=== PATIENT | male | born 1970 ===

== ENCOUNTER 2024-05-09 06:27 | Day surgery (SDC) | payer BC, OTHER, SELFPAY | END 2024-05-09 12:49 | disposition home or self-care (01) | LOC: GI 06:27 | PROVIDERS: ATTENDING PHYSICIAN Internal Medicine Gastroenterology | DX: Z12.11 Encounter for screening for malignant neoplasm of colon (principal); K57.30 Diverticulosis of large intestine without perforation or abscess without bleeding; K64.8 Other hemorrhoids; R12 Heartburn; K44.9 Diaphragmatic hernia without obstruction or gangrene; K22.70 Barrett's esophagus without dysplasia; Z80.0 Family history of malignant neoplasm of digestive organs; D12.2 Benign neoplasm of ascending colon; D12.0 Benign neoplasm of cecum; Z86.0101 Personal history of adenomatous and serrated colon polyps | CPT/HCPCS: 45385; 43239; 88305 ==

== ENCOUNTER 2024-07-31 06:10 | Day surgery (SDC) | payer BC, OTHER, SELFPAY ==
[2024-07-31 08:47] VITALS: BMI 22.5
[2024-07-31 10:54] VITALS: BP 113/65
[2024-07-31 11:00] VITALS: BP 118/68
[2024-07-31 11:15] VITALS: BP 114/72
== END 2024-07-31 11:30 | disposition home or self-care (01) ==
LOC: GI 06:10
PROVIDERS: ATTENDING PHYSICIAN Internal Medicine Gastroenterology
DX: D12.0 Benign neoplasm of cecum (principal); K63.5 Polyp of colon; K63.89 Other specified diseases of intestine; K57.30 Diverticulosis of large intestine without perforation or abscess without bleeding; K64.0 First degree hemorrhoids
CPT/HCPCS: 45390; 45380; 88305

== ENCOUNTER → 2024-08-03 13:59 | Day surgery (SDC) | payer BC, OTHER, SELFPAY ==
[2024-08-03] VITALS (9 sets, daily range): BP systolic 102–117; BP diastolic 62–91; BMI 23.4
--- NOTE | 2024-08-03 10:35 | ED.GENMED ---
History of Present Illness
General
Chief Complaint: Swallowing Problem
Source: patient
Exam Limitations: none
Time Seen by Provider: 08/03/24 10:27
History of Present Illness
History of Present Illness:
See MDM
Past History
Past History
ED Past Medical History: GERD
ED Past Surgical History: None
Social History
Tobacco: Non-smoker
Alcohol: None
Phy Exam
Physical Exam
Physical Exam:
See MDM
Course
Orders/Labs/Results
Orders:
Orders
08/03/24 10:31
0.9% Sodium Chloride 1000 ml [Nss] 1,000 ml IV BOLUS
Glucagon [GlucaGen] 1 mg IV NOW STA
08/03/24 10:54
Lorazepam [Ativan] 0.5 mg IV NOW STA
08/03/24 11:27
Consult Gastroenterology [GASTROINTESTINAL CONSULT] Urgent
Consulting Provider: Amy Rodriguez
Was physician already notified: Yes
Glucagon [GlucaGen] 1 mg IV NOW STA
Vital Signs
Initial and Last Documented VS:
Initial Vital Signs
Temp Pulse Resp BP Pulse Ox
98.2 F 61 16 104/67 99
08/03/24 09:49 08/03/24 09:49 08/03/24 09:49 08/03/24 09:49 08/03/24 09:49
Last Documented Vital Signs
Temp Pulse Resp BP Pulse Ox
97.6 F 64 18 108/63 99
08/03/24 14:36 08/03/24 15:30 08/03/24 15:30 08/03/24 15:30 08/03/24 15:30
MDM/Problems Addressed
Differential Diagnosis Includes:
HPI and MDM Narrative:
53-year-old male presenting for evaluation of esophageal food impaction. Patient was eating dinner last night and a piece of chicken got caught in his throat. He has been unable to swallow water or completely swallow his secretions since then. On
exam, he is somewhat uncomfortable. Will give dose of glucagon and provide IV fluids and discussed case with GI
Physical exam
General: Mildly uncomfortable
HEENT: protecting airway. Posterior pharynx clear
Neck: appears supple
CV: No evidence of cyanosis
Resp: No accessory muscle use
Abd: Non-distended
Extremities: No deformities
Neuro: alert
Psych: Normal affect
Skin: Intact
Problems Addressed including Acute and Chronic Conditions affecting care:
1. Esophageal food impaction
Acuity: acute
Prognosis: stable
Details: Will give dose of glucagon and reassess
Updates
Patient given glucagon x 2 with no relief. GI brought up to the GI lab
Differential Diagnosis (but not limited to): Esophageal food impaction, esophagitis
Testing considered: Chest x-ray
Drug therapy (if applicable): OTC meds, please see d/c instruction regarding Rx drugs
Amount and/or Complexity of Data Reviewed
Clinical info obtained from: Patient
External data reviewed: N/A
Labs I independently reviewed (but not limited to): N/A
Radiology: N/A
Pulse Ox: not hypoxic
EKG independently reviewed: N/A
Stone Driller: N/A
Critical Care: N/A
Risk of Complication:
Social Determinants of health: Good social support
Discussed with other providers: Gastroenterology
Escalation of Care includes Admit/Obs: Given esophageal food impaction, patient sent to the GI lab for extraction
Occasional wrong word or 'sound a like' substitutions may have occurred due to the inherent limitations of voice recognition software. Read the chart carefully and recognize, using context, where substitutions have occurred.
*Critical Care Note
Total Time (30-74mins, 75-104mins- exclusive of procedures): Not Applicable
ED Attending Note
-
Portions of this chart may have been created with voice recognition software.� Occasional wrong word or��sound alike� substitutions may have occurred due to the inherent limitations of voice recognition software.
Discharge Plan
Departure
Patient Disposition: GI LAB
Admit to: GI lab
Presentation/result/management discussed w/ accepting MD/DO: GI
Discharge Problem:
Food impaction of esophagus
Interventions
Interventions:
*Risk Screen - Suicide Last Done: 08/03/24 10:49
*General Assessment Last Done: 08/03/24 10:49
*Neglect/Abuse Screening Last Done: 08/03/24 10:49
*ED- Fall Risk Assessment Last Done: 08/03/24 13:35
*ED COVID-19 Vaccine History Last Done: 08/03/24 10:49
*Nursing Disposition Last Done: 08/03/24 13:35
ED-EENT Assessment Last Done: 08/03/24 10:54
AO-Poogyf-Cdzvgorzpm Assessment Last Done: 08/03/24 10:50
ED- Pulmonary Assessment Last Done: 08/03/24 10:50
ED- Neurological Assessment Last Done: 08/03/24 10:50
ED Swallowing Screen Last Done: 08/03/24 11:00
Discharge Date and Time
Discharge Date/Time: 08/03/24 13:35
[2024-08-03] MEDS: GlucaGen 1 MG IV ×2 (10:45→11:42)
[2024-08-03] MEDS: NSS 1000 IV (10:45)
[2024-08-03] MEDS: ATIVAN 0.5 MG IV (10:57)
--- NOTE | 2024-08-03 12:03 | CON.GI ---
Consultation
-
Date/Time Consultation Requested: 08/03/2024, 11:30am
Date/Time Consultation Performed: 08/03/2024, 11:45 am
Requesting Provider: Dr. Talley
Performing Provider: Dr. Rodriguez
Reason for Consultation: food impaction
Medical History
Chief Complaint / HPI
Chief Complaint: can't swallow
History of Present Illness:
Patient is a 53-year-old male who follows with Dr. Wiggins who last had upper endoscopy April 2024. At that time, he had Magaña's, hiatal hernia, normal stomach and duodenum, reviewing report random biopsies for EOE not taken at that time. He
is on Nexium 40 mg for his Magaña's and reflux which was increased from 20 mg after the scope. Patient states in the last year he has had 1 or 2 episodes similar but the food would pass. Reviewing his outpatient notes, he had some dysphagia in
2021 as well. However, last night he had some grilled chicken and felt it get stuck. He felt the chicken moved down a little bit but was unable to pass it completely. He has been having issues tolerating his secretions. He has been unable to eat
or drink since then. In the emergency room, he received glucagon with no improvement.
Past Medical History
Past Medical History: Other (gerd, barretts, colon polyps)
Past Surgical History: None
Social History
Tobacco: Non-Smoker
Alcohol: Occasional
Drug: None
Family History
Family History: Other (grandfather esophageal ca)
Allergies / Home Medications
Allergy/AdvReac Type Severity Reaction Status Date / Time
No Known Allergies Allergy Unverified 07/31/24 08:30
�Medication �Instructions �Recorded
esomeprazole magnesium 40 mg 40 mg PO DAILY 07/31/24
capsule,delayed release (Nexium)
peg-electrolyte solution 420 gram ml 07/31/24
oral solution (GaviLyte-N)
Review of Systems
-
All other systems: A 12 pt ROS was Negative except as stated above in HPI
Vital Signs
Temp Pulse Resp BP Pulse Ox
98.2 F 61 16 117/91 100
08/03/24 09:49 08/03/24 11:00 08/03/24 11:00 08/03/24 11:00 08/03/24 11:00
Physical Exam
Exam
General: Well Developed
HEENT: Normocephalic
Respiratory: Clear
Cardiac: S1/S2
GI: Non Tender and Non Distended
Musculoskeletal: No Clubbing
Skin: Warm
Neuro: AO x 3
Hematologic/Lymphatic: No Lymphadenopathy
Psych: Calm
Results
Diagnostic Image Results:
Prior GI Procedures:
EGD:
Colonoscopy:
Assessment / Plan
-
53-year-old male past medical history of Magaña's and reflux with intermittent dysphagia for years presenting with food bolus. Suspect either Schatzki's ring as he did have a medium size hiatal hernia versus eosinophilic esophagitis.
Discussed with the emergency room physician. Plan for repeat glucagon now. If no improvement with second dose of glucagon, plan for upper endoscopy. We discussed the risk, benefits, and alternatives to upper endoscopy. The risks include
bleeding, infection, perforation, missed lesion, and cardiopulmonary complications from anesthesia. The importance of bringing an escort and remaining NPO after midnight was discussed.
I updated his outpatient GI doctor as well.
-
-
Thank you for consultation and allowing me to participate in the patient's care. Please call the medical transcription editor GI physician during the after hours with any questions or concerns.
--- NOTE | 2024-08-03 12:11 | EDRN ---
Report given to Radha BARTH in GI lab at this time.
== END | disposition home or self-care (01) ==
LOC: EMR 09:36 → SDS 13:59
PROVIDERS: ATTENDING PHYSICIAN Student in an Organized Health Care Education/Training Program; CONSULT PHYSICIAN Internal Medicine Gastroenterology; FAMILY PHYSICIAN Family Medicine
DX: T18.128A Food in esophagus causing other injury, initial encounter (principal); W44.F3XA Food entering into or through a natural orifice, initial encounter; K22.70 Barrett's esophagus without dysplasia; K20.0 Eosinophilic esophagitis; K22.2 Esophageal obstruction; K22.89 Other specified disease of esophagus; K44.9 Diaphragmatic hernia without obstruction or gangrene; K21.9 Gastro-esophageal reflux disease without esophagitis; R13.10 Dysphagia, unspecified; Z86.0100 Personal history of colon polyps, unspecified
CPT/HCPCS: 43247; 43239; 88305; 96361; 96374; 96375; 96376; 99284; J1610

== ENCOUNTER 2025-02-28 06:20 | Day surgery (SDC) | payer BC, SELFPAY | END 2025-02-28 14:02 | disposition home or self-care (01) | LOC: GI 06:20 | PROVIDERS: ATTENDING PHYSICIAN Internal Medicine Gastroenterology | DX: Z12.11 Encounter for screening for malignant neoplasm of colon (principal); Z86.0101 Personal history of adenomatous and serrated colon polyps; K57.30 Diverticulosis of large intestine without perforation or abscess without bleeding; R12 Heartburn; K44.9 Diaphragmatic hernia without obstruction or gangrene; K22.70 Barrett's esophagus without dysplasia; R13.10 Dysphagia, unspecified; K31.89 Other diseases of stomach and duodenum; D12.2 Benign neoplasm of ascending colon; K86.89 Other specified diseases of pancreas; Z98.890 Other specified postprocedural states | CPT/HCPCS: 45385; 43239; 88305 ==